=== PATIENT | male | born 1960 | race Caucasian/White ===

== ENCOUNTER 2017-05-10 18:28 | Emergency (ER) | payer MEDICAID ==
[2017-05-10] MEDS ORDERED: MAGNESIUM CITRATE 296 ML BOTTLE PO STA (19:25)
--- NOTE | 2017-05-10 19:30 | ED Physician Documentation ---
PD HPI ABD PAIN - Stated complaint Stated Complaint: ABD PX - Chief complaint Chief Complaint: Abd Pain - History obtained from History obtained from: Patient - History of Present Illness Timing - onset: Other (56-year-old gentleman who usually lives in [place] but he is out here visiting his son for the winter. He has chronic pain and brought his codeine with them and usually takes a bowel regimen but he left that back in [place]. He has not had a good bowel movement for several weeks now. He has not had any vomiting. He has mild stomach discomfort no rectal fullness or pain. He tried some [id number] laxatives here without relief. No fevers.) Review of Systems Constitutional: denies: Fever, Chills Throat: reports: Reviewed and negative Cardiac: reports: Reviewed and negative Respiratory: reports: Reviewed and negative PD PAST MEDICAL HISTORY - Past Medical History Past Medical History: Yes Neuro: CVA, Seizure disorder, Other Psych: Depression Other Past Medical History: brain aneurysm in 2014 - Past Surgical History Past Surgical History: Yes Neuro: Craniotomy - Present Medications Home Medications: Ambulatory Orders Medication Instructions Recorded Confirmed Acetaminophen with Codeine 1 tab PO PRN PRN 05/10/17 05/10/17 [Tylenol with Codeine #4 Tablet] Bisacodyl [Dulcolax] 10 mg PO DAILY #10 tablet 05/10/17 Escitalopram [Lexapro] 20 mg PO DAILY 05/10/17 05/10/17 Gabapentin 200 mg PO BID 05/10/17 05/10/17 Lactulose [Generlac] 10 gm PO QID PRN #150 ml 05/10/17 OLANZapine [Olanzapine] 20 mg PO DAILY 05/10/17 05/10/17 Oxcarbazepine [Oxtellar Xr] 1,200 mg PO DAILY PM 05/10/17 05/10/17 Topiramate 50 mg PO BID 05/10/17 05/10/17 Venlafaxine ER [Effexor ER] 150 mg PO DAILY 05/10/17 05/10/17 - Allergies Allergies/Adverse Reactions: Allergies Allergy/AdvReac Type Severity Reaction Status Date / Time cephalexin [From Keflex] Allergy Unknown Verified 05/10/17 18:37 erythromycin base Allergy Unknown Verified 05/10/17 18:37 - Social History Does the pt smoke?: Yes Smoking Status: Current every day smoker Does the pt drink ETOH?: No Does the pt have substance abuse?: No PD ED PE NORMAL - Vitals Vital signs reviewed: Yes - General General: Alert and oriented X 3, No acute distress - Abdomen Abdomen: Normal bowel sounds, Soft, Non tender - Neuro Neuro: Alert and oriented X 3, Normal speech Results - Vitals Vitals: Vital Signs - 24 hr 05/10/17 05/10/17 18:34 20:24 Temperature 36.1 C L 36.5 C Heart Rate 82 72 Respiratory 16 16 Rate Blood Pressure 95/67 107/68 O2 Saturation 100 97 Oxygen O2 Source Room air - Rads (name of study) Ab xray Radiology: EMP read contemporaneously (no SBO) Departure - Departure Disposition: Home, Self Care Clinical Impression: Constipation Qualifiers: Constipation type: slow transit constipation Qualified Code(s): K59.01 - Slow transit constipation Condition: Good Record reviewed to determine appropriate education?: Yes Instructions: ED Constipation Prescriptions: Bisacodyl [Dulcolax] 10 mg PO DAILY #10 tablet Lactulose [Generlac] 10 gm PO QID PRN #150 ml PRN Reason: Constipation Comments: Call your doctor to arrange a follow-up appointment, make the next available appointment. In the interim, return anytime if worse or if new symptoms develop.
[2017-05-10] MEDS ORDERED: MAGNESIUM CITRATE 296 ML BOTTLE ONE (19:34)
[2017-05-10] MEDS ORDERED: diphenhydrAMINE 25 MG CAPSULE PO STA (19:59)
[2017-05-10 20:29] VITALS: BP 107/68
--- NOTE | 2017-05-10 20:33 | XRAY Preliminary Report ---
Exam: XR ABDOMEN 2 VIEW IMPRESSION: Nonspecific bowel gas pattern with small amount of stool. [facility] SITE ID: [id number]
--- NOTE | 2017-05-10 20:36 | XRAY Report ---
EXAM: ABDOMEN RADIOGRAPHY EXAM DATE: 05/10/2017 08:04 PM. CLINICAL HISTORY: Abd pain. COMPARISON: None. TECHNIQUE: 2 views. FINDINGS: Lung Bases: Unremarkable. Bowel Gas Pattern: Scattered collections of large and small bowel gas throughout the abdomen with no focal dilation. Small amount of stool. Free Air: None. Other: None. IMPRESSION: Nonspecific bowel gas pattern with small amount of stool. [facility] Referring Provider Line: [phone] SITE ID: [id number]
[2017-05-10] MEDS ORDERED: LACTULOSE 10 GM /15 ML UDC PO STA (20:51)
[2017-05-10] MEDS ORDERED: BISACODYL 5 MG TABLET PO STA (20:51)
[2017-05-10] MEDS ORDERED: BISACODYL 5 MG TABLET PO ONE (21:10)
[2017-05-10] MEDS ORDERED: LACTULOSE 10 GM /15 ML UDC ONE (21:10)
== END 2017-05-10 21:13 | disposition home or self-care (01) ==
LOC: ED 18:28
DX: K59.01 Slow transit constipation (principal); Z86.73 Personal history of transient ischemic attack (TIA), and cerebral infarction without residual deficits; G40.909 Epilepsy, unspecified, not intractable, without status epilepticus; F17.200 Nicotine dependence, unspecified, uncomplicated
CPT/HCPCS: 74020; 99283; A9270

== ENCOUNTER 2017-05-24 14:28 | Outpatient (CLI) | payer MEDICAID ==
[2017-05-24 19:00] LABS: BASOPHILS # (AUTO) 0.1 10^3/uL (0.0-0.1); BASOPHILS % (AUTO) 0.6 %; EOSINOPHILS % (AUTO) 0.3 %; HCT - HEMATOCRIT 48.6 % (42.0-52.0); LYMPHOCYTES # (AUTO) 2.1 10^3/uL (1.5-3.5); LYMPHOCYTES % (AUTO) 21.3 %; MEAN CORPUSCULAR HEMOGLOBIN 32.1 pg (27.0-31.0); MEAN CORPUSCULAR HGB CONC 32.9 g/dL (32.0-36.0); MEAN CORPUSCULAR VOLUME 97.6 fL (80.0-94.0); MEAN PLATELET VOLUME 7.6 fL (7.4-11.4); MONOCYTES # (AUTO) 0.6 10^3/uL (0.0-1.0); MONOCYTES % (AUTO) 5.8 %; NUCLEATED RED BLOOD CELLS AUTO 0.1 /100WBC; RED BLOOD COUNT 4.97 10^6/uL (4.70-6.10); RED CELL DISTRIBUTION WIDTH 14.1 % (12.0-15.0); UNCORRECTED WHITE BLOOD COUNT 9.7 x10^3/uL; WHITE BLOOD COUNT 9.7 x10^3/uL (4.8-10.8)
[2017-05-24 19:15] LABS: ALBUMIN/GLOBULIN RATIO 1.5 (1.0-2.2); BILIRUBIN,TOTAL 0.6 mg/dL (0.2-1.0); BUN - BLOOD UREA NITROGEN 15 mg/dL (6-20); CALCIUM 9.5 mg/dL (8.5-10.3); CARBON DIOXIDE - CO2 22 mmol/L (21-32); CHLORIDE 103 mmol/L (101-111); CHOL/HDL RATIO 7.5 (<5.0); CHOLESTEROL 344 mg/dL; CREATININE 1.1 mg/dL (0.6-1.2); GFR - MDRD 69 (>89); GLUCOSE 93 mg/dL (70-100); HDL CHOLESTEROL 46 mg/dL; LDL/HDL RATIO 5.3 (<3.6); POTASSIUM 3.6 mmol/L (3.5-5.0); SODIUM 137 mmol/L (135-145); TOTAL PROTEIN 8.1 g/dL (6.7-8.2); TRIGLYCERIDES 261 mg/dL; VLDL CHOLESTEROL 52 mg/dL
== END 2017-05-24 14:29 | disposition home or self-care (01) ==
LOC: LAB.N 14:28
PROVIDERS: ATTEND Family Medicine
DX: I49.5 Sick sinus syndrome (principal); Z51.81 Encounter for therapeutic drug level monitoring; G40.909 Epilepsy, unspecified, not intractable, without status epilepticus
CPT/HCPCS: 36415; 80050; 80061

== ENCOUNTER 2017-06-07 06:46 | Outpatient (CLI) | payer MEDICAID | END 2017-06-07 06:47 | disposition critical access hospital (66) | LOC: EMS 06:46 | PROVIDERS: ATTEND Surgery | DX: R29.898 Other symptoms and signs involving the musculoskeletal system (principal); R51 Headache | CPT/HCPCS: A0425; A0429 ==

== ENCOUNTER 2017-06-07 07:06 | Emergency (ER) | payer MEDICAID ==
[2017-06-07] MEDS ORDERED: MORPHINE 2 MG/ML SYRINGE IVP STA ×4 (07:14→14:41)
[2017-06-07] MEDS ORDERED: PROMETHAZINE INJ 25 MG in SODIUM CHLORIDE 0.9% 50 ML IV STA (07:15)
--- NOTE | 2017-06-07 07:17 | ED Physician Documentation ---
History of Present Illness - Stated complaint Stated Complaint: CVA - Chief complaint Chief Complaint: Neuro - Additonal information Additional information: hx from pt EMS and primarily pt son 56 male recently moved to [place] from [place] Pmhx sig for prior brain aneurysms and ICH and s/p coils, clipping and crani also PPM X 18, trach, seizures, lipids DVT anxiety OA last normal last night 730PM awoke 4 Am today with a throbbing R frontal SERNA, L facial droop, L arm and leg weakness and confusion all of which are not baseline for him no vision or hearing or speech abn facial droop resolved, arm and leg weakness persist Review of Systems Constitutional: denies: Fever Cardiac: denies: Chest pain / pressure Respiratory: denies: Dyspnea, Cough GI: reports: Nausea. denies: Abdominal Pain Neurologic: reports: Focal weakness, Headache. denies: Numbness, Difficulty speaking, Head injury Endocrine: denies: Easy bruising / bleeding Immunocompromised: denies: Immunocompromised PD PAST MEDICAL HISTORY - Past Medical History Neuro: CVA, Seizure disorder, Other Psych: Depression - Past Surgical History Past Surgical History: Yes Neuro: Craniotomy - Present Medications Home Medications: Ambulatory Orders Medication Instructions Recorded Confirmed Acetaminophen with Codeine 1 tab PO PRN PRN 05/10/17 06/07/17 [Tylenol with Codeine #4 Tablet] Bisacodyl [Dulcolax] 10 mg PO DAILY #10 tablet 05/10/17 06/07/17 Escitalopram [Lexapro] 20 mg PO DAILY 05/10/17 06/07/17 Gabapentin 200 mg PO TID 05/10/17 06/07/17 Lactulose [Generlac] 10 gm PO QID PRN #150 ml 05/10/17 06/07/17 OLANZapine [Olanzapine] 20 mg PO DAILY 05/10/17 06/07/17 Oxcarbazepine [Oxtellar Xr] 1,200 mg PO DAILY PM 05/10/17 06/07/17 Topiramate 50 mg PO BID 05/10/17 06/07/17 Venlafaxine ER [Effexor ER] 150 mg PO DAILY 05/10/17 06/07/17 - Allergies Allergies/Adverse Reactions: Allergies Allergy/AdvReac Type Severity Reaction Status Date / Time cephalexin [From Keflex] Allergy Unknown Verified 05/10/17 18:37 erythromycin base Allergy Unknown Verified 05/10/17 18:37 ketorolac [From Toradol] Allergy Itching Verified 06/07/17 07:11 TPA AdvReac Unknown Unknown Uncoded 06/07/17 07:18 - Social History Does the pt smoke?: Yes Smoking Status: Current every day smoker Does the pt drink ETOH?: No Does the pt have substance abuse?: No PD ED PE NORMAL - Vitals Vital signs reviewed: Yes - General General: Alert and oriented X 3 - HEENT HEENT: PERRL, Other (prior R crani) - Neck Neck: Other (trach scar) - Cardiac Cardiac: RRR, Other (numerous PPM scars) - Respiratory Respiratory: No respiratory distress, Clear bilaterally - Abdomen Abdomen: Soft, Non tender - Derm Derm: Normal color - Neuro Neuro: Alert and oriented X 3, local superintendent 2-12 intact, No sensory deficit, Normal speech. No: No motor deficit (L arm and leg drift) Eye Opening: Spontaneous Motor: Obeys Commands Verbal: Oriented GCS Score: 15 Results - Vitals Vitals: Vital Signs - 24 hr 06/07/17 06/07/17 06/07/17 07:07 07:19 08:16 Temperature 36.1 C L 36.8 C Heart Rate 83 56 L Respiratory 11 L 15 Rate Blood Pressure 116/63 114/80 O2 Saturation 99 97 06/07/17 06/07/17 06/07/17 09:08 10:02 11:02 Temperature Heart Rate 53 L 50 L 58 L Respiratory 14 12 16 Rate Blood Pressure 117/82 H 113/76 109/78 O2 Saturation 97 97 97 06/07/17 06/07/17 06/07/17 12:15 13:52 15:58 Temperature 36.8 C Heart Rate 51 L 56 L 56 L Respiratory 16 15 18 Rate Blood Pressure 111/70 107/70 96/60 O2 Saturation 97 96 95 Oxygen O2 Source Room air - EKG (time done) 0712 Rate: Rate (enter#) (89) Rhythm: Other (atrial paced) Ischemia: Q waves (V1 V2) - Labs Labs: Laboratory Tests 06/07/17 06/07/17 07:40 07:40 WBC 9.6 RBC 4.63 L Hgb 15.1 Hct 43.4 MCV 93.6 MCH 32.7 H MCHC 34.9 RDW 13.6 Plt Count 237 MPV 7.1 L Neut # 6.7 H Lymph # 1.9 Phillips # 0.9 Eos # 0.0 Baso # 0.1 Absolute Nucleated RBC 0.00 Nucleated RBC % 0.0 Sodium 136 Potassium 3.9 Chloride 109 Carbon Dioxide 20 L Anion Gap 7.0 BUN 12 Creatinine 0.8 Estimated GFR (MDRD) 100 Glucose 95 Calcium 9.2 - Rads (name of study) CTH Radiology: See rad report (no acute ICH, chronic changes) PD MEDICAL DECISION MAKING - ED course ED course: due to prior ICH pt can never have TPA, son in ambulance with pt immediately alerted staff - will add as an allergy for pt so that if he ever arrives and is unable to to explain EMR will alert staff reviewed old records son brought from [place] - seems in spring 2013 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 . . not captured" CTH today no acute, paced rhythm, nl labs 56 male with hx ICH and surgery with new L sided neuro deficits which are improved but not resolved who is clearly not a TPA candidate - could be ischemic stroke, enlarging aneurysm, todds paralysis etc- will call [facility] stroke team to transfer for further work up and eval spoke to neuro Dr Mckinney at [facility] who accepts pt in transfer - asks that pt take his oxtellar XR ( pt states it is QPM and he took it last night so OK there ) and asa 324 and try to get info re PPM so know if pt can get MRI - pts PPM card is in [facility] at home but family will take a pic of it and text to son who is in the ER with pt - card in wallet was from 2001 and that was not most recent PPM, most recent per pt was by Dr Solitario at [facility] in [facility] - trying to get records Long wait for a bed at [facility] pt then transfereed when available Departure - Departure Disposition: 02 Transfer Acute Care Hosp Clinical Impression: Left-sided weakness Headache Qualifiers: Headache type: unspecified Headache chronicity pattern: acute headache Intractability: not intractable Qualified Code(s): R51 - Headache Condition: Fair Discharge Date/Time: 06/07/17 16:30 NIHSS - Time Time: 07:10 - Level of Consciousness Level of consciousness: (0) Alert, Keenly responsive LOC Questions: (0) Answers both Q's correct LOC Commands: (0) Performs both correctly - Gaze Best Gaze: (0) Normal - Visual Visual: (0) No loss - Facial Palsy Facial Palsy: (0) Normal, symmetrical movement - Motor Arms (both separate) Motor Arm (right): (0) No drift Motor Arm (left): (2) Some effort against gravity - Motor Legs (both separate) Motor Leg (right): (0) No drift Motor Leg (left): (2) Some effort against gravity - Limb Ataxia Limb Ataxia: (0) Absent - Sensory Sensory: (0) Normal - Best Language Best Language: (0) No aphasia - Dysarthria Dysarthria: (0) Normal - Extinction and Inattention (formally neg Extinction and inattention: (0) No abnormality - Total Score/Results Total Score/Result: 4
--- NOTE | 2017-06-07 07:37 | CT Preliminary Report ---
Exam: CT HEAD W/O STROKE PROTOCOL IMPRESSION: No evidence of an acute intracranial process. Chronic changes are present. Critical test called to Dr. Armendariz 06/07/2017 7:35 AM [facility] SITE ID: [id number]
--- NOTE | 2017-06-07 07:40 | CT Report ---
EXAM: CT HEAD EXAM DATE: 06/07/2017 07:25 AM. CLINICAL HISTORY: L sided weakness, SERNA, prior aneurysm ICH crani. COMPARISON: None. TECHNIQUE: Multiaxial CT images were obtained from the foramen magnum to the vertex. Reformats: Coron al. IV contrast: None. In accordance with CT protocol optimization, one or more of the following dose reduction techniques w ere utilized for this exam: automated exposure control, adjustment of mA and/or KV based on patient s ize, or use of iterative reconstructive technique. FINDINGS: Parenchyma: Status post aneurysm surgery with clip in the region of the right anterior clinoid. Artif act obscures detail. Minor age-related central and cortical tissue loss with evidence of old right fr ontal ventriculostomy tract. Encephalomalacia in a portion of the distal right anterior cerebral brinda ry territory/watershed distribution. No acute hemorrhage, mass, midline shift, or significant extra-a xial collection. Extraaxial Spaces: No acute subdural or epidural collections identified. Ventricles: Normal in size and position. Sinuses and Orbits: Imaged paranasal sinuses, orbits, and mastoids show no significant abnormality. Bones: Status post right frontal craniotomy. Bifrontal carlos holes. Other: None. IMPRESSION: No evidence of an acute intracranial process. Chronic changes are present. Critical test called to Dr. Armendariz 06/07/2017 7:35 AM [facility] Referring Provider Line: [phone] SITE ID: [id number]
[2017-06-07 07:54] LABS: BASOPHILS # (AUTO) 0.1 10^3/uL (0.0-0.1); EOSINOPHILS % (AUTO) 0.2 %; HCT - HEMATOCRIT 43.4 % (42.0-52.0); HGB - HEMOGLOBIN 15.1 g/dL (14.0-18.0); LYMPHOCYTES # (AUTO) 1.9 10^3/uL (1.5-3.5); MEAN CORPUSCULAR HEMOGLOBIN 32.7 pg (27.0-31.0); MEAN CORPUSCULAR HGB CONC 34.9 g/dL (32.0-36.0); MEAN CORPUSCULAR VOLUME 93.6 fL (80.0-94.0); MEAN PLATELET VOLUME 7.1 fL (7.4-11.4); MONOCYTES # (AUTO) 0.9 10^3/uL (0.0-1.0); MONOCYTES % (AUTO) 8.9 %; NEUTROPHILS # (AUTO) 6.7 10^3/uL (1.5-6.6); NEUTROPHILS % (AUTO) 69.9 %; RED BLOOD COUNT 4.63 10^6/uL (4.70-6.10); RED CELL DISTRIBUTION WIDTH 13.6 % (12.0-15.0); UNCORRECTED WHITE BLOOD COUNT 9.6 x10^3/uL; WHITE BLOOD COUNT 9.6 x10^3/uL (4.8-10.8)
[2017-06-07 07:57] LABS: CALCIUM 9.2 mg/dL (8.5-10.3); CREATININE 0.8 mg/dL (0.6-1.2); POTASSIUM 3.9 mmol/L (3.5-5.0)
[2017-06-07] MEDS ORDERED: ASPIRIN CHEW 81 MG TABLET PO STA (08:53)
[2017-06-07] MEDS ORDERED: ASPIRIN CHEW 81 MG TABLET ONE (08:55)
[2017-06-07] MEDS ORDERED: ACETAMINOPHEN 1,000 MG/100 ML 100 ML IV STA (12:50)
[2017-06-07] MEDS ORDERED: PROMETHAZINE INJ 12.5 MG in SODIUM CHLORIDE 0.9% 50 ML IV STA (14:41)
[2017-06-07 15:59] VITALS: BP 96/60
== END 2017-06-07 16:30 | disposition short-term general hospital (02) ==
LOC: EDUNIT# → ED 07:06
DX: I69.354 Hemiplegia and hemiparesis following cerebral infarction affecting left non-dominant side (principal); R51 Headache; E78.5 Hyperlipidemia, unspecified; Z86.718 Personal history of other venous thrombosis and embolism; F41.9 Anxiety disorder, unspecified; M19.90 Unspecified osteoarthritis, unspecified site; G40.909 Epilepsy, unspecified, not intractable, without status epilepticus; F17.200 Nicotine dependence, unspecified, uncomplicated
CPT/HCPCS: 36415; 70450; 80048; 85025; 93005; 96365; 96366; 96367; 96375; 96376; 99284; 99285; A9270; J0131; J2270; J7040

== ENCOUNTER → 2017-06-07 | Outpatient (CLI) | payer MEDICAID | END | disposition short-term general hospital (02) | LOC: EMS 16:22 | PROVIDERS: ATTEND Surgery | DX: R53.1 Weakness (principal); R51 Headache | CPT/HCPCS: A0425; A0426 ==

== ENCOUNTER 2017-06-18 04:50 | Outpatient (CLI) | payer MEDICAID | END 2017-06-18 04:51 | disposition critical access hospital (66) | LOC: EMS 04:50 | PROVIDERS: ATTEND Surgery | DX: R51 Headache (principal); R56.9 Unspecified convulsions ==

== ENCOUNTER 2017-06-18 05:06 | Emergency (ER) | payer MEDICAID ==
[2017-06-18] MEDS ORDERED: ACETAMINOPHEN 500 MG TABLET PO STA (05:58)
[2017-06-18 06:04] LABS: BASOPHILS # (AUTO) 0.1 10^3/uL (0.0-0.1); BASOPHILS % (AUTO) 1.1 %; EOSINOPHILS % (AUTO) 0.4 %; LYMPHOCYTES # (AUTO) 2.2 10^3/uL (1.5-3.5); LYMPHOCYTES % (AUTO) 31.8 %; MEAN CORPUSCULAR HEMOGLOBIN 31.7 pg (27.0-31.0); MEAN CORPUSCULAR VOLUME 96.3 fL (80.0-94.0); MEAN PLATELET VOLUME 7.2 fL (7.4-11.4); MONOCYTES # (AUTO) 0.6 10^3/uL (0.0-1.0); MONOCYTES % (AUTO) 9.4 %; NEUTROPHILS # (AUTO) 3.9 10^3/uL (1.5-6.6); NEUTROPHILS % (AUTO) 57.3 %; PLT - PLATELET COUNT 304 10^3/uL (130-450); RED CELL DISTRIBUTION WIDTH 13.6 % (12.0-15.0); WHITE BLOOD COUNT 6.9 x10^3/uL (4.8-10.8)
[2017-06-18 06:15] LABS: ALBUMIN 3.9 g/dL (3.2-5.5); ALBUMIN/GLOBULIN RATIO 1.4 (1.0-2.2); BILIRUBIN,TOTAL 0.3 mg/dL (0.2-1.0); CALCIUM 9.2 mg/dL (8.5-10.3); TOTAL PROTEIN 6.7 g/dL (6.7-8.2)
--- NOTE | 2017-06-18 06:41 | CT Report ---
EXAM: CT HEAD EXAM DATE: 06/18/2017 06:27 AM. CLINICAL HISTORY: Seizure COMPARISON: 06/07/2017. TECHNIQUE: Multiaxial CT images were obtained from the foramen magnum to the vertex. Reformats: Coron al. IV contrast: None. In accordance with CT protocol optimization, one or more of the following dose reduction techniques w ere utilized for this exam: automated exposure control, adjustment of mA and/or KV based on patient s ize, or use of iterative reconstructive technique. FINDINGS: Again demonstrated are changes of right pterional craniotomy and right ICA aneurysm surgery, endovasc ular coil also seen in this region. Linear hypodensity extends from a right frontal carlos hole to the right frontal horn, likely the seque la of prior EVD placement and removal. This is unchanged. Small, old left cerebellum infarct, also stable. Chronic appearing area of infarct is seen medial aspect of the right frontal and parietal lobes, also unchanged. No space-occupying lesion, hemorrhage, extracerebral fluid collection, hydrocephalus or evidence of i nterval infarct. Skull base, paranasal sinuses and mastoids appear unremarkable. Calvarium is unremarkable aside from craniotomy. IMPRESSION: Old appearing infarcts, unchanged. Stable postoperative changes of right ICA aneurysm surgery. No acute intracranial process identified. Stable finding since 06/07/2017. [facility] Referring Provider Line: [phone] SITE ID: [id number]
[2017-06-18] MEDS ORDERED: levETIRAcetam INJ 2,000 MG in SODIUM CHLORIDE 0.9% 100ML 100 ML IV STA (06:51)
--- NOTE | 2017-06-18 06:51 | ED Physician Documentation ---
PD HPI SEIZURE - Stated complaint Stated Complaint: SEIZURES X4 - Chief complaint Chief Complaint: Neuro - History obtained from History obtained from: Patient, Family, EMS - History of Present Illness Timing - onset: Today Witnessed: Witnessed Number of seizures: Multiple, Lasted - seconds Description of seizure activity: Generalized, Tonic clonic History of seizures: Known seizure disorder Similar symptoms before: Work up / diagnostics, Treatment Recently seen: Admitted - Additional information Additional information: patient is a 56 year old male with a known seizure disorder who was brought in by ems for recurrent seizures. According to patient, family and ems patient was recently admitted to [facility] and was discharged 3 days ago. The son states that the patient had been ok but tonight he was woken up when he heard banging from his father's room. Son called ems. son states that he had one earlier in the day as well. When ems arrived patient had another witnessed seizure that was tonic clonic that resolved on its own. Patient had a third one that seemed more focal in nature. Patient only complained of headache upon initial evaluation in the emergency department. Review of Systems Constitutional: denies: Fever, Chills Eyes: denies: Decreased vision, Photophobia Ears: denies: Ear pain, Drainage/discharge Nose: denies: Rhinorrhea / runny nose, Congestion, Sinus pressure / pain Throat: denies: Dental pain / toothache, Oral lesions / sores, Sore throat Cardiac: denies: Chest pain / pressure, Palpitations, Calf pain Respiratory: denies: Cough, Wheezing GI: denies: Nausea, Vomiting, Constipation, Diarrhea : reports: Reviewed and negative Skin: denies: Lesions, Abrasion (s), Laceration (s) Musculoskeletal: denies: Back pain Neurologic: reports: Seizure, Headache. denies: Head injury Immunocompromised: denies: Immunocompromised PD PAST MEDICAL HISTORY - Past Medical History Cardiovascular: Other Neuro: CVA, Seizure disorder, Other Psych: Depression - Past Surgical History Past Surgical History: Yes Cardiovascular: Pacemaker Neuro: Craniotomy - Present Medications Home Medications: Ambulatory Orders Medication Instructions Recorded Confirmed Escitalopram [Lexapro] 20 mg PO DAILY 05/10/17 06/18/17 Gabapentin 300 mg PO TID 05/10/17 06/18/17 OLANZapine [Olanzapine] 20 mg PO QPM 05/10/17 06/18/17 Topiramate 100 mg PO BID 05/10/17 06/18/17 Aspirin [Aspirin EC] 1 tab PO DAILY 06/18/17 06/18/17 Atorvastatin Calcium 1 tab PO DAILY 06/18/17 06/18/17 Levetiracetam [Keppra] 2,000 mg PO BID 30 Days #120 tablet 06/18/17 06/18/17 oxyCODONE [Roxicodone] 1 - 2 tab PO Q6HR PRN 06/18/17 06/18/17 - Allergies Allergies/Adverse Reactions: Allergies Allergy/AdvReac Type Severity Reaction Status Date / Time cephalexin [From Keflex] Allergy Unknown Verified 06/18/17 23:52 erythromycin base Allergy Unknown Verified 06/18/17 23:52 ketorolac [From Toradol] Allergy Itching Verified 06/18/17 23:52 TPA AdvReac Unknown Unknown Uncoded 06/18/17 23:52 - Social History Does the pt smoke?: Yes Smoking Status: Current every day smoker Does the pt drink ETOH?: No Does the pt have substance abuse?: No - Immunizations Immunizations are current?: No Immunizations: TDAP >10years/unknown - POLST Patient has POLST: No PD ED PE NORMAL - Vitals Vital signs reviewed: Yes - General General: Alert and oriented X 3 - HEENT HEENT: Atraumatic, PERRL, Ears normal, Moist mucous membranes, Pharynx benign - Neck Neck: Supple, no meningeal sign, No JVD - Cardiac Cardiac: RRR, No murmur - Respiratory Respiratory: No respiratory distress, Clear bilaterally - Abdomen Abdomen: Soft, Non tender, Non distended - Derm Derm: Normal color, Warm and dry, No rash - Extremities Extremities: No deformity, Normal ROM s pain, No calf tenderness / cord - Neuro Neuro: Alert and oriented X 3, oil and gas drafter 2-12 intact, No motor deficit, No sensory deficit, Normal speech Eye Opening: Spontaneous Motor: Obeys Commands Verbal: Oriented GCS Score: 15 Results - Vitals Vitals: Vital Signs - 24 hr 06/18/17 06/18/17 06/18/17 05:08 05:20 05:55 Temperature 36.0 C L Heart Rate 73 75 65 Respiratory 17 19 12 Rate Blood Pressure 110/76 110/76 109/74 O2 Saturation 100 97 99 06/18/17 06/18/17 06/18/17 07:04 08:16 10:38 Temperature 36.2 C L Heart Rate 92 58 L 65 Respiratory 17 12 15 Rate Blood Pressure 108/76 110/87 H 112/85 H O2 Saturation 98 100 100 Oxygen O2 Source Room air - Labs Labs: Laboratory Tests 06/18/17 06/18/17 05:55 05:55 WBC 6.9 RBC 4.40 L Hgb 14.0 Hct 42.4 MCV 96.3 H MCH 31.7 H MCHC 33.0 RDW 13.6 Plt Count 304 MPV 7.2 L Neut # 3.9 Lymph # 2.2 Stokes # 0.6 Eos # 0.0 Baso # 0.1 Absolute Nucleated RBC 0.00 Nucleated RBC % 0.0 Sodium 142 Potassium 3.4 L Chloride 111 Carbon Dioxide 21 Anion Gap 10.0 BUN 12 Creatinine 1.0 Estimated GFR (MDRD) 78 L Glucose 95 Calcium 9.2 Total Bilirubin 0.3 AST 25 ALT 24 Alkaline Phosphatase 70 Total Protein 6.7 Albumin 3.9 Globulin 2.8 Albumin/Globulin Ratio 1.4 Lipase 39 - Rads (name of study) ct head Radiology: Final report received (no acute abnormalities) PD MEDICAL DECISION MAKING - ED course Complexity details: reviewed old records, reviewed results, re-evaluated patient , considered differential, d/w patient, d/w family, d/w information technology consultant ED course: Patient was seen and examined at bedside. labs were drawn and imaging was ordered. Patient was slightly post ictal but awake and alert. Patient was treated with morphine for his headache. Patient's diagnostics were within normal limits. [facility] was contacted and the case was discussed with Dr. hernadez neurologist vocational technical education teacher. He stated that the patient could be loaded with keppra 2gm and increase the dose of the daily keppra to 1500 bid. He stated that if the patient responded well and had no issues over a 4 hour observation he could go home and follow up outpatient. Family was comfortable with the plan. patient and family stated that he has been under a lot of stress and going through a divorce. Departure - Departure Disposition: 01 Home, Self Care Clinical Impression: Seizure Condition: Good Instructions: ED Seizure Recurrent Follow-Up: primary,care provider [Other] - Within 3 Days Prescriptions: Levetiracetam [Keppra] 2,000 mg PO BID 30 Days #120 tablet Comments: Your breakthrough seizures are likely secondary to all of your stress. it is important that you try to keep your stress levels low to help reduce the risk for recurrent seizures. Your seizure medication has been increased to keppra 200 mg twice a day - next dose is tonight You should continue with your other medications as prescribed. It is important that you call your neurologist on Monday to schedule a follow up appointment - if you do not have an outpatient neurologist call Dustin Wills at to schedule. You will need to stay with a responsible adult who can watch you at all times. No driving etc. If you have any further seizures yoiu need to come back to the ER and you will need to be transferred back to [facility] for admission Discharge Date/Time: 06/18/17 10:47
[2017-06-18] MEDS ORDERED: MORPHINE 10 MG/ML VIAL IVP STA ×2 (06:52→08:02)
[2017-06-18] MEDS: levETIRAcetam INJ 1,000 MG in SODIUM CHLORIDE 0.9% 100ML 100 ML IV SCH ×2 (07:34→08:05)
[2017-06-18] MEDS ORDERED: oxyCODONE 5 MG TABLET PO STA (10:01)
--- NOTE | 2017-06-18 10:09 | ED Physician Documentation ---
History of Present Illness - Stated complaint Stated Complaint: SEIZURES X4 - Chief complaint Chief Complaint: Neuro PD PAST MEDICAL HISTORY - Past Medical History Cardiovascular: Other Neuro: CVA, Seizure disorder, Other Psych: Depression - Past Surgical History Past Surgical History: Yes Cardiovascular: Pacemaker Neuro: Craniotomy - Present Medications Home Medications: Ambulatory Orders Medication Instructions Recorded Confirmed Escitalopram [Lexapro] 20 mg PO DAILY 05/10/17 06/18/17 Gabapentin 300 mg PO TID 05/10/17 06/18/17 OLANZapine [Olanzapine] 20 mg PO QPM 05/10/17 06/18/17 Topiramate 100 mg PO BID 05/10/17 06/18/17 Aspirin [Aspirin EC] 1 tab PO DAILY 06/18/17 06/18/17 Atorvastatin Calcium 1 tab PO DAILY 06/18/17 06/18/17 Levetiracetam [Keppra] 2,000 mg PO BID 30 Days #120 tablet 06/18/17 oxyCODONE [Roxicodone] 1 - 2 tab PO Q6HR PRN 06/18/17 06/18/17 - Allergies Allergies/Adverse Reactions: Allergies Allergy/AdvReac Type Severity Reaction Status Date / Time cephalexin [From Keflex] Allergy Unknown Verified 05/10/17 18:37 erythromycin base Allergy Unknown Verified 05/10/17 18:37 ketorolac [From Toradol] Allergy Itching Verified 06/07/17 07:11 TPA AdvReac Unknown Unknown Uncoded 06/07/17 07:18 - Social History Does the pt smoke?: Yes Smoking Status: Current every day smoker Does the pt drink ETOH?: No Does the pt have substance abuse?: No - Immunizations Immunizations are current?: No Immunizations: TDAP >10years/unknown - POLST Patient has POLST: No Results - Vitals Vitals: Vital Signs - 24 hr 06/18/17 06/18/17 06/18/17 05:08 05:20 05:55 Temperature 36.0 C L Heart Rate 73 75 65 Respiratory 17 19 12 Rate Blood Pressure 110/76 110/76 109/74 O2 Saturation 100 97 99 06/18/17 06/18/17 06/18/17 07:04 08:16 10:38 Temperature 36.2 C L Heart Rate 92 58 L 65 Respiratory 17 12 15 Rate Blood Pressure 108/76 110/87 H 112/85 H O2 Saturation 98 100 100 Oxygen O2 Source Room air - Labs Labs: Laboratory Tests 06/18/17 06/18/17 05:55 05:55 WBC 6.9 RBC 4.40 L Hgb 14.0 Hct 42.4 MCV 96.3 H MCH 31.7 H MCHC 33.0 RDW 13.6 Plt Count 304 MPV 7.2 L Neut # 3.9 Lymph # 2.2 [place] # 0.6 Eos # 0.0 Baso # 0.1 Absolute Nucleated RBC 0.00 Nucleated RBC % 0.0 Sodium 142 Potassium 3.4 L Chloride 111 Carbon Dioxide 21 Anion Gap 10.0 BUN 12 Creatinine 1.0 Estimated GFR (MDRD) 78 L Glucose 95 Calcium 9.2 Total Bilirubin 0.3 AST 25 ALT 24 Alkaline Phosphatase 70 Total Protein 6.7 Albumin 3.9 Globulin 2.8 Albumin/Globulin Ratio 1.4 Lipase 39 PD MEDICAL DECISION MAKING - ED course ED course: assumed care 8 AM 56 male hx brain aneurysm, ICH s/p clip/coil and crani, hx seizures also PPM X 18 and trach and HLD DVT anxiety recently seen by me for stroke like sx and SERNA tx to [facility] where he had an extensive wup dc home last night had 4 seziures no injury has a bad SERNA but states that is typical for him after seizures night EMP spoke to [facility] and was advised to load 2 g keppra then obs 2 more hr and then speak with neuro again and if all well and dc on increased outpt oral dose, went to see pt he is awake alert pleasant cooperative only complaint is persistent SERNA which is not new for him d/w Dr Hua [facility] neuro who advises pt had a CT angio showing no new aneurysm and a neg LP during his recent inpt stay - rec keppra 2g BID start tonight stay with another adult if more seizures return and will need to be admitted - continue everything else as before fup neuro as an outpt, rec Dustin Wills to schedule Departure - Departure Disposition: 01 Home, Self Care Clinical Impression: Seizure Condition: Good Instructions: ED Seizure Recurrent Follow-Up: primary,care provider [Other] - Within 3 Days Prescriptions: Levetiracetam [Keppra] 2,000 mg PO BID 30 Days #120 tablet Comments: Your breakthrough seizures are likely secondary to all of your stress. it is important that you try to keep your stress levels low to help reduce the risk for recurrent seizures. Your seizure medication has been increased to keppra 200 mg twice a day - next dose is tonight You should continue with your other medications as prescribed. It is important that you call your neurologist on Monday to schedule a follow up appointment - if you do not have an outpatient neurologist call uDstin Wills at to schedule. You will need to stay with a responsible adult who can watch you at all times. No driving etc. If you have any further seizures yoiu need to come back to the ER and you will need to be transferred back to [facility] for admission Discharge Date/Time: 06/18/17 10:47
[2017-06-18 10:39] VITALS: BP 112/85
== END 2017-06-18 10:47 | disposition home or self-care (01) ==
LOC: EDUNIT# → ED 05:06
DX: G40.909 Epilepsy, unspecified, not intractable, without status epilepticus (principal); F17.200 Nicotine dependence, unspecified, uncomplicated; Z86.73 Personal history of transient ischemic attack (TIA), and cerebral infarction without residual deficits; Z95.0 Presence of cardiac pacemaker; Z79.82 Long term (current) use of aspirin; Z98.890 Other specified postprocedural states
CPT/HCPCS: 36415; 70450; 80053; 83690; 85025; 99285

== ENCOUNTER 2017-06-18 23:25 | Outpatient (CLI) | payer MEDICAID | END 2017-06-18 23:26 | disposition critical access hospital (66) | LOC: EMS 23:25 | PROVIDERS: ATTEND Surgery | DX: R56.9 Unspecified convulsions (principal) | CPT/HCPCS: A0425; A0427 ==

== ENCOUNTER 2017-06-18 23:43 | Emergency (ER) | payer MEDICAID ==
[2017-06-19 00:15] LABS: BASOPHILS # (AUTO) 0.1 10^3/uL (0.0-0.1); EOSINOPHILS % (AUTO) 0.3 %; HGB - HEMOGLOBIN 12.6 g/dL (14.0-18.0); LYMPHOCYTES # (AUTO) 2.7 10^3/uL (1.5-3.5); LYMPHOCYTES % (AUTO) 36.6 %; MEAN CORPUSCULAR HEMOGLOBIN 32.9 pg (27.0-31.0); MEAN CORPUSCULAR HGB CONC 34.9 g/dL (32.0-36.0); MEAN CORPUSCULAR VOLUME 94.1 fL (80.0-94.0); MEAN PLATELET VOLUME 7.3 fL (7.4-11.4); MONOCYTES # (AUTO) 0.6 10^3/uL (0.0-1.0); MONOCYTES % (AUTO) 7.6 %; NEUTROPHILS # (AUTO) 3.9 10^3/uL (1.5-6.6); NEUTROPHILS % (AUTO) 54.5 %; PLT - PLATELET COUNT 272 10^3/uL (130-450); RED BLOOD COUNT 3.85 10^6/uL (4.70-6.10); RED CELL DISTRIBUTION WIDTH 13.6 % (12.0-15.0); WHITE BLOOD COUNT 7.2 x10^3/uL (4.8-10.8)
[2017-06-19] MEDS ORDERED: SODIUM CHLORIDE 0.9% 1,000 ML IV ONE (00:15)
[2017-06-19] MEDS ORDERED: fentaNYL 100 MCG/2 ML VIAL IVP STA ×2 (00:15→01:32)
[2017-06-19 00:25] LABS: ALBUMIN 3.6 g/dL (3.2-5.5); ALBUMIN/GLOBULIN RATIO 1.5 (1.0-2.2); BILIRUBIN,TOTAL 0.2 mg/dL (0.2-1.0); CALCIUM 8.9 mg/dL (8.5-10.3); CREATININE 0.9 mg/dL (0.6-1.2)
[2017-06-19] MEDS ORDERED: TOPIRAMATE 25 MG TABLET PO STA (00:30)
--- NOTE | 2017-06-19 00:30 | ED Physician Documentation ---
PD HPI SEIZURE - Stated complaint Stated Complaint: MULTIPLE SEIZURES - Chief complaint Chief Complaint: Neuro - History obtained from History obtained from: Patient, Family, EMS - History of Present Illness Timing - onset: Today Number of seizures: Multiple, Lasted - seconds (30) Description of seizure activity: Generalized, Tonic clonic Injury during seizure: None Associated symptoms: Headache History of seizures: Known seizure disorder Contributing factors: Changed meds Treatment CASH MANAGEMENT COORDINATOR: Valium Similar symptoms before: Work up / diagnostics, Treatment Recently seen: Emergency Dept - Additional information Additional information: Patient is a 56 year old male with a history of prior aneurysm and recurrent seizures who is presenting to the emergency department for recurrent seizures. Patient was seen in the emergency department yesterday, and with the guidance of neurology was loaded with 2gm of keppra and increased his daily dose to 1500mg. Patient states that he took his meds today, but he had another seizure witnessed by the son. Son called ems. EMS witness three more seizures while under their care. All of the seizures lasted about 30-60 seconds and were tonic clonic in nature. Upon initial evaluation in the emergency department patient was awake and alert and complained only of headache. Review of Systems Constitutional: denies: Fever, Chills Eyes: denies: Decreased vision, Photophobia Ears: denies: Ear pain, Drainage/discharge Nose: denies: Congestion Throat: denies: Dental pain / toothache, Oral lesions / sores Cardiac: denies: Palpitations Respiratory: denies: Dyspnea, Cough GI: denies: Nausea, Vomiting : reports: Reviewed and negative Skin: denies: Rash, Abrasion (s), Laceration (s) Musculoskeletal: denies: Neck pain, Back pain, Extremity pain Neurologic: reports: Seizure, Headache. denies: Head injury Immunocompromised: denies: Immunocompromised PD PAST MEDICAL HISTORY - Past Medical History Cardiovascular: Other Neuro: CVA, TIA, Seizure disorder, Other Psych: Depression - Past Surgical History Past Surgical History: Yes Cardiovascular: Pacemaker Neuro: Craniotomy - Present Medications Home Medications: Ambulatory Orders Medication Instructions Recorded Confirmed Escitalopram [Lexapro] 20 mg PO DAILY 05/10/17 06/18/17 Gabapentin 300 mg PO TID 05/10/17 06/18/17 OLANZapine [Olanzapine] 20 mg PO QPM 05/10/17 06/18/17 Topiramate 100 mg PO BID 05/10/17 06/18/17 Aspirin [Aspirin EC] 1 tab PO DAILY 06/18/17 06/18/17 Atorvastatin Calcium 1 tab PO DAILY 06/18/17 06/18/17 Levetiracetam [Keppra] 2,000 mg PO BID 30 Days #120 tablet 06/18/17 06/18/17 oxyCODONE [Roxicodone] 1 - 2 tab PO Q6HR PRN 06/18/17 06/18/17 - Allergies Allergies/Adverse Reactions: Allergies Allergy/AdvReac Type Severity Reaction Status Date / Time cephalexin [From Keflex] Allergy Unknown Verified 06/18/17 23:52 erythromycin base Allergy Unknown Verified 06/18/17 23:52 ketorolac [From Toradol] Allergy Itching Verified 06/18/17 23:52 TPA AdvReac Unknown Unknown Uncoded 06/18/17 23:52 - Social History Does the pt smoke?: Yes Smoking Status: Current every day smoker Does the pt drink ETOH?: No Does the pt have substance abuse?: No - Immunizations Immunizations are current?: No Immunizations: TDAP >10years/unknown - POLST Patient has POLST: No PD ED PE NORMAL - Vitals Vital signs reviewed: Yes - General General: Alert and oriented X 3, No acute distress - HEENT HEENT: Atraumatic, PERRL, Moist mucous membranes - Neck Neck: Supple, no meningeal sign, No JVD - Cardiac Cardiac: RRR, No murmur - Respiratory Respiratory: No respiratory distress, Clear bilaterally - Abdomen Abdomen: Soft, Non tender, Non distended - Derm Derm: Normal color - Extremities Extremities: No deformity, Normal ROM s pain - Neuro Neuro: Alert and oriented X 3, No motor deficit, No sensory deficit, Normal speech Eye Opening: Spontaneous Motor: Obeys Commands Verbal: Oriented GCS Score: 15 - Psych Psych: Normal mood PD ED PE EXPANDED - General General: Alert, In Pain Results - Vitals Vitals: Vital Signs - 24 hr 06/18/17 06/19/17 06/19/17 23:48 00:00 00:16 Temperature 36.6 C Heart Rate 73 69 68 Respiratory 11 L 18 18 Rate Blood Pressure 99/68 83/59 L 92/69 O2 Saturation 96 97 97 06/19/17 00:54 Temperature Heart Rate 76 Respiratory 20 Rate Blood Pressure 94/68 O2 Saturation 100 Oxygen O2 Source Room air - Labs Labs: Laboratory Tests 06/18/17 06/18/17 00:05 00:05 WBC 7.2 RBC 3.85 L Hgb 12.6 L Hct 36.2 L MCV 94.1 H MCH 32.9 H MCHC 34.9 RDW 13.6 Plt Count 272 MPV 7.3 L Neut # 3.9 Lymph # 2.7 [place] # 0.6 Eos # 0.0 Baso # 0.1 Absolute Nucleated RBC 0.00 Nucleated RBC % 0.0 Sodium 142 Potassium 3.2 L Chloride 111 Carbon Dioxide 23 Anion Gap 8.0 BUN 11 Creatinine 0.9 Estimated GFR (MDRD) 88 L Glucose 100 Calcium 8.9 Total Bilirubin 0.2 AST 17 ALT 20 Alkaline Phosphatase 61 Total Protein 6.0 L Albumin 3.6 Globulin 2.4 Albumin/Globulin Ratio 1.5 Lipase 33 PD MEDICAL DECISION MAKING - ED course Complexity details: reviewed old records, reviewed results, re-evaluated patient , considered differential, d/w patient, d/w family, d/w service consultant ED course: Patient was seen and examined at bedside. Patient was awake and alert. A page was sent out for [facility] [place] [facility]. labs were drawn and patient was treated with ns bolus and fentanyl for his headache. seizure precautions were made. Case was discussed with DR. Schultz, [facility] [place] [facility] who agreed to transfer and inpatient care since the patient failed outpatient therapy and had worsening symptoms. He also recommended 50mg of topimax and valproic acid if necessary. Arrangements were made and patient was transferred in stable condition. Departure - Departure Disposition: 02 Transfer Acute Care Hosp Clinical Impression: Seizure Condition: Stable
[2017-06-19] MEDS ORDERED: POTASSIUM CHLORIDE 20 MEQ TABLET PO STA (00:46)
[2017-06-19] MEDS ORDERED: fentaNYL 100 MCG/2 ML VIAL ONE (01:30)
[2017-06-19 01:35] VITALS: BP 111/76
== END 2017-06-19 01:28 | disposition short-term general hospital (02) ==
LOC: EDUNIT# → EDBD → ED 23:43 → SUPCPDRO 23:43 → ED 06-19 01:28
DX: G40.909 Epilepsy, unspecified, not intractable, without status epilepticus (principal); F17.200 Nicotine dependence, unspecified, uncomplicated; Z86.73 Personal history of transient ischemic attack (TIA), and cerebral infarction without residual deficits; Z95.0 Presence of cardiac pacemaker; Z79.82 Long term (current) use of aspirin; Z98.890 Other specified postprocedural states
CPT/HCPCS: 36415; 70450; 80053; 83690; 85025; 96361; 96365; 96374; 96375; 96376; 99285; A9270

== ENCOUNTER 2017-06-19 01:30 | Outpatient (CLI) | payer MEDICAID | END 2017-06-19 01:31 | disposition short-term general hospital (02) | LOC: EMS 01:30 | PROVIDERS: ATTEND Surgery | DX: R56.9 Unspecified convulsions (principal) | CPT/HCPCS: A0425; A0426 ==

== ENCOUNTER 2017-07-04 13:59 | Outpatient (CLI) | payer MEDICAID | END 2017-07-04 14:00 | disposition critical access hospital (66) | LOC: EMS 13:59 | PROVIDERS: ATTEND Surgery | DX: R45.851 Suicidal ideations (principal) | CPT/HCPCS: A0425; A0429 ==

== ENCOUNTER 2017-07-04 14:24 | Emergency (ER) | payer MEDICAID ==
--- NOTE | 2017-07-04 14:38 | ED Physician Documentation ---
History of Present Illness - Stated complaint Stated Complaint: SI - History obtained from History obtained from: Patient, EMS - History of Present Illness Timing: Chronic Pain level max: 0 Pain level now: 0 Improved by: nothing Worsened by: nothing - Additonal information Additional information: Patient is a 56-year-old male with a history of depression who states that He has been feeling suicidal over the past several days, worse today. Saw [facility] this morning and created a safety plan to be seen next week. He felt unsafe at home, call 911 and was brought here for evaluation. Says the voices in his head are telling him to harm himself. Has a history of a brain aneurysm, multiple brain surgeries. States last hospitalized in March when he was living in [place], attempted suicide by pills at that time. Has not attempted suicide today. Review of Systems Ten Systems: 10 systems reviewed and negative Constitutional: denies: Fever, Chills Ears: denies: Ear pain Nose: denies: Rhinorrhea / runny nose, Congestion Cardiac: denies: Chest pain / pressure Respiratory: denies: Cough GI: denies: Nausea, Vomiting, Diarrhea Skin: denies: Rash Musculoskeletal: denies: Neck pain, Back pain Neurologic: denies: Headache PD PAST MEDICAL HISTORY - Past Medical History Cardiovascular: Other Neuro: CVA, TIA, Seizure disorder, Other Psych: Depression - Past Surgical History Past Surgical History: Yes Cardiovascular: Pacemaker Neuro: Craniotomy - Present Medications Home Medications: Ambulatory Orders Medication Instructions Recorded Confirmed Escitalopram [Lexapro] 20 mg PO DAILY 05/10/17 07/04/17 Gabapentin 300 mg PO TID 05/10/17 07/04/17 OLANZapine [Olanzapine] 20 mg PO QPM 05/10/17 07/04/17 Topiramate 100 mg PO BID 05/10/17 07/04/17 Aspirin [Aspirin EC] 1 tab PO DAILY 06/18/17 07/04/17 Atorvastatin Calcium 1 tab PO DAILY 06/18/17 07/04/17 Levetiracetam [Keppra] 1,000 mg PO BID 07/04/17 07/04/17 Valproic Acid 750 mg PO TID 07/04/17 07/04/17 - Allergies Allergies/Adverse Reactions: Allergies Allergy/AdvReac Type Severity Reaction Status Date / Time cephalexin [From Keflex] Allergy Unknown Verified 06/18/17 23:52 erythromycin base Allergy Unknown Verified 06/18/17 23:52 ketorolac [From Toradol] Allergy Itching Verified 06/18/17 23:52 TPA AdvReac Unknown Unknown Uncoded 06/18/17 23:52 - Social History Does the pt smoke?: Yes Smoking Status: Current every day smoker Does the pt drink ETOH?: No Does the pt have substance abuse?: No - Immunizations Immunizations are current?: No Immunizations: TDAP >10years/unknown - POLST Patient has POLST: No PD ED PE NORMAL - Vitals Vital signs reviewed: Yes - General General: Alert and oriented X 3, No acute distress, Well developed/nourished - HEENT HEENT: PERRL, Moist mucous membranes - Neck Neck: Supple, no meningeal sign - Cardiac Cardiac: RRR, Strong equal pulses - Respiratory Respiratory: No respiratory distress, Clear bilaterally - Abdomen Abdomen: Soft, Non tender, Non distended - Derm Derm: Warm and dry - Neuro Neuro: Alert and oriented X 3 - Psych Psych: Normal mood, Normal affect Results - Vitals Vitals: Vital Signs - 24 hr 07/04/17 07/04/17 07/04/17 14:41 15:18 17:57 Temperature 36.1 C L 36.5 C Heart Rate 88 68 75 Respiratory 16 18 18 Rate Blood Pressure 126/76 101/70 119/77 O2 Saturation 100 98 96 07/04/17 20:50 Temperature Heart Rate 66 Respiratory 18 Rate Blood Pressure 110/75 O2 Saturation 100 Oxygen O2 Source Room air - Labs Labs: Laboratory Tests 07/04/17 07/04/17 07/04/17 14:39 14:39 15:04 WBC 6.9 RBC 4.34 L Hgb 13.9 L Hct 41.2 L MCV 94.8 H MCH 32.0 H MCHC 33.7 RDW 13.4 Plt Count 199 MPV 8.5 Neut # 4.4 Lymph # 1.6 [place] # 0.9 Eos # 0.0 Baso # 0.1 Absolute Nucleated RBC 0.00 Nucleated RBC % 0.0 Sodium 140 Potassium 3.7 Chloride 107 Carbon Dioxide 22 Anion Gap 11.0 BUN 15 Creatinine 1.0 Estimated GFR (MDRD) 78 L Glucose 99 Calcium 9.1 Total Bilirubin 0.2 AST 17 ALT 14 Alkaline Phosphatase 62 Total Protein 6.7 Albumin 3.9 Globulin 2.8 Albumin/Globulin Ratio 1.4 Lipase 27 Salicylates < 6.0 Urine Opiates Screen NEGATIVE Ur Oxycodone Screen NEGATIVE Urine Methadone Screen NEGATIVE Ur Propoxyphene Screen NEGATIVE Acetaminophen < 10 L Ur Barbiturates Screen NEGATIVE Ur Tricyclics Screen NEGATIVE Ur Phencyclidine Scrn NEGATIVE Ur Amphetamine Screen NEGATIVE U Methamphetamines Scrn NEGATIVE U Benzodiazepines Scrn NEGATIVE Urine Cocaine Screen NEGATIVE U Cannabinoids Screen POSITIVE H Ethyl Alcohol < 5.0 PD MEDICAL DECISION MAKING - ED course Complexity details: reviewed results, re-evaluated patient, considered differential, d/w patient, d/w family, d/w application security consultant ED course: Patient is a 56-year-old male with a history of depression and psychosis, presents with worsening voices telling him to harm himself. He states that he is concerned that he may actually hurt himself and would like to go to a psychiatric facility. Social work was consulted and are trying to locate a bed , though none appear available tonight. He is cooperative in the emergency department and is taking his medications. Will be signed out to the [facility] emergency department physician for further care throughout the night and repeat evaluation with social work in the morning. This document was made in part using voice recognition software. While efforts are made to proofread this document, sound alike and grammatical errors may occur. Departure - Departure Clinical Impression: Major depression with psychotic features Condition: Stable
[2017-07-04 14:48] LABS: BASOPHILS # (AUTO) 0.1 10^3/uL (0.0-0.1); BASOPHILS % (AUTO) 0.9 %; HGB - HEMOGLOBIN 13.9 g/dL (14.0-18.0); LYMPHOCYTES # (AUTO) 1.6 10^3/uL (1.5-3.5); LYMPHOCYTES % (AUTO) 23.4 %; MEAN CORPUSCULAR HGB CONC 33.7 g/dL (32.0-36.0); MEAN CORPUSCULAR VOLUME 94.8 fL (80.0-94.0); MEAN PLATELET VOLUME 8.5 fL (7.4-11.4); MONOCYTES # (AUTO) 0.9 10^3/uL (0.0-1.0); MONOCYTES % (AUTO) 12.6 %; NEUTROPHILS # (AUTO) 4.4 10^3/uL (1.5-6.6); NEUTROPHILS % (AUTO) 63.1 %; PLT - PLATELET COUNT 199 10^3/uL (130-450); RED BLOOD COUNT 4.34 10^6/uL (4.70-6.10); RED CELL DISTRIBUTION WIDTH 13.4 % (12.0-15.0); WHITE BLOOD COUNT 6.9 x10^3/uL (4.8-10.8)
[2017-07-04 15:01] LABS: ALBUMIN 3.9 g/dL (3.2-5.5); ALBUMIN/GLOBULIN RATIO 1.4 (1.0-2.2); ALKALINE PHOSPHATASE 62 IU/L (42-121); ALT ALANINE AMINOTRANSFERASE 14 IU/L (10-60); AST ASPARTATE AMINOTRANSFERASE 17 IU/L (10-42); BILIRUBIN,TOTAL 0.2 mg/dL (0.2-1.0); BUN - BLOOD UREA NITROGEN 15 mg/dL (6-20); CALCIUM 9.1 mg/dL (8.5-10.3); CARBON DIOXIDE - CO2 22 mmol/L (21-32); CHLORIDE 107 mmol/L (101-111); GFR - MDRD 78 (>89); GLUCOSE 99 mg/dL (70-100); LIPASE 27 U/L (22-51); SALICYLATE < 6.0 mg/dL; SODIUM 140 mmol/L (135-145); TOTAL PROTEIN 6.7 g/dL (6.7-8.2)
[2017-07-04 15:07] LABS: ACETAMINOPHEN < 10 ug/mL (10-30)
[2017-07-04 15:08] LABS: MUDS CUTOFF CONCENTRATIONS CUTOFF CONC BELOW:
[2017-07-04 15:23] LABS: AMPHETAMINE SCREEN,URINE NEGATIVE (NEGATIVE); BENZODIAZEPINES SCREEN, URINE NEGATIVE (NEGATIVE); COCAINE SCREEN URINE NEGATIVE (NEGATIVE); METHADONE SCREEN, URINE NEGATIVE (NEGATIVE); METHAMPHETAMINES SCREEN, URINE NEGATIVE (NEGATIVE); OPIATE SCREEN, URINE NEGATIVE (NEGATIVE); OXYCODONE SCREEN, URINE NEGATIVE (NEGATIVE); PROPOXYPHENE SCREEN, URINE NEGATIVE (NEGATIVE); TRICYCLIC ANTIDEPRESSANT,URINE NEGATIVE (NEGATIVE)
[2017-07-04] MEDS ORDERED: OLANZapine ODT 5 MG TABLET TL ONE ×2 (18:46→21:54)
[2017-07-04] MEDS ORDERED: OLANZapine ODT 5 MG TABLET TL STA (19:40)
[2017-07-04] MEDS ORDERED: LORazepam 0.5 MG TABLET PO STA (20:21)
[2017-07-04] MEDS ORDERED: GABAPENTIN 100 MG CAPSULE PO STA (21:53)
[2017-07-04] MEDS ORDERED: DIVALPROEX DR 125 MG TABLET PO STA (21:54)
[2017-07-04] MEDS ORDERED: levETIRAcetam 250 MG TABLET PO STA (21:54)
[2017-07-04] MEDS ORDERED: LORazepam 2 MG/ML VIAL IM STA (22:15)
[2017-07-04] MEDS: TOPIRAMATE 100 MG TABLET PO STA (22:25)
[2017-07-05] MEDS ORDERED: NICOTINE 14 MG PATCH TOP STA ×2 (01:45→08:40)
[2017-07-05] MEDS ORDERED: LORazepam 0.5 MG TABLET PO STA ×2 (01:48→11:23)
[2017-07-05] MEDS ORDERED: OLANZapine ODT 5 MG TABLET TL STA (04:42)
[2017-07-05] MEDS ORDERED: DIVALPROEX ER 250 MG TABLET PO STA ×2 (07:09→13:59)
[2017-07-05] MEDS ORDERED: levETIRAcetam 250 MG TABLET PO STA ×3 (07:10→22:15)
[2017-07-05] MEDS ORDERED: TOPIRAMATE 100 MG TABLET PO STA (07:10)
[2017-07-05] MEDS ORDERED: GABAPENTIN 100 MG CAPSULE PO STA ×3 (07:11→22:15)
[2017-07-05] MEDS ORDERED: ESCITALOPRAM 10 MG TABLET PO STA (07:11)
[2017-07-05] MEDS ORDERED: ASPIRIN 325 MG TABLET PO STA (07:12)
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
[2017-07-05] MEDS ORDERED: risperiDONE 1 MG TABLET PO STA (17:52)
--- NOTE | 2017-07-05 18:09 | ED Physician Documentation ---
History of Present Illness - Stated complaint Stated Complaint: SI - Chief complaint Chief Complaint: MHE - History obtained from History obtained from: Patient PD PAST MEDICAL HISTORY - Past Medical History Past Medical History: Yes Cardiovascular: Other Neuro: CVA, TIA, Seizure disorder, Other Psych: Depression Other Past Medical History: Hx: SI/HI , Auditory Hallucinations - Past Surgical History Past Surgical History: Yes Cardiovascular: Pacemaker Neuro: Craniotomy - Present Medications Home Medications: Ambulatory Orders Medication Instructions Recorded Confirmed Escitalopram [Lexapro] 20 mg PO DAILY 05/10/17 07/04/17 Gabapentin 300 mg PO TID 05/10/17 07/04/17 OLANZapine [Olanzapine] 20 mg PO QPM 05/10/17 07/04/17 Topiramate 100 mg PO BID 05/10/17 07/04/17 Aspirin [Aspirin EC] 1 tab PO DAILY 06/18/17 07/04/17 Atorvastatin Calcium 1 tab PO DAILY 06/18/17 07/04/17 Levetiracetam [Keppra] 1,000 mg PO BID 07/04/17 07/04/17 Valproic Acid 750 mg PO TID 07/04/17 07/04/17 risperiDONE [Risperdal] 1 mg PO BID #20 tablet 07/05/17 - Allergies Allergies/Adverse Reactions: Allergies Allergy/AdvReac Type Severity Reaction Status Date / Time cephalexin [From Keflex] Allergy Unknown Verified 06/18/17 23:52 erythromycin base Allergy Unknown Verified 06/18/17 23:52 ketorolac [From Toradol] Allergy Itching Verified 06/18/17 23:52 TPA AdvReac Unknown Unknown Uncoded 06/18/17 23:52 - Social History Does the pt smoke?: Yes Smoking Status: Current every day smoker Does the pt drink ETOH?: No Does the pt have substance abuse?: No - Immunizations Immunizations are current?: No Immunizations: TDAP >10years/unknown - POLST Patient has POLST: No Results - Vitals Vitals: Vital Signs - 24 hr 07/06/17 07/06/17 08:14 11:48 Temperature 36.6 C 36.2 C L Heart Rate 90 100 Respiratory 18 18 Rate Blood Pressure 109/64 114/82 H O2 Saturation 99 97 Oxygen O2 Source Room air - Labs Labs: Laboratory Tests 07/04/17 07/04/17 07/04/17 14:39 14:39 15:04 WBC 6.9 RBC 4.34 L Hgb 13.9 L Hct 41.2 L MCV 94.8 H MCH 32.0 H MCHC 33.7 RDW 13.4 Plt Count 199 MPV 8.5 Neut # 4.4 Lymph # 1.6 [place] # 0.9 Eos # 0.0 Baso # 0.1 Absolute Nucleated RBC 0.00 Nucleated RBC % 0.0 Sodium 140 Potassium 3.7 Chloride 107 Carbon Dioxide 22 Anion Gap 11.0 BUN 15 Creatinine 1.0 Estimated GFR (MDRD) 78 L Glucose 99 Calcium 9.1 Total Bilirubin 0.2 AST 17 ALT 14 Alkaline Phosphatase 62 Total Protein 6.7 Albumin 3.9 Globulin 2.8 Albumin/Globulin Ratio 1.4 Lipase 27 Salicylates < 6.0 Urine Opiates Screen NEGATIVE Ur Oxycodone Screen NEGATIVE Urine Methadone Screen NEGATIVE Ur Propoxyphene Screen NEGATIVE Acetaminophen < 10 L Ur Barbiturates Screen NEGATIVE Ur Tricyclics Screen NEGATIVE Ur Phencyclidine Scrn NEGATIVE Ur Amphetamine Screen NEGATIVE U Methamphetamines Scrn NEGATIVE U Benzodiazepines Scrn NEGATIVE Urine Cocaine Screen NEGATIVE U Cannabinoids Screen POSITIVE H Ethyl Alcohol < 5.0 PD MEDICAL DECISION MAKING - ED course Complexity details: reviewed old records, reviewed results, re-evaluated patient , considered differential, d/w patient, d/w family ED course: 56-year-old male with a history of depression and seizure disorder has acute suicidal ideation and command hallucinations telling him to kill himself. He has had multiple doses of Zyprexa which have not reduce these hallucinations. We were unable to provide a bed for the patient in a psychiatric facility yesterday and today we have begun trying again. In the morning he had no medical social worker and we asked the tele-psych DrMaria Del Carmen to evaluate the patient for admission.Dr. Latonya Nunez was kind enough to provide recommendations for the patient's care. She did a thorough evaluation of his psychiatric needs and has recommended we stop his Zyprexa and replace it with Risperdal 1 mg twice daily. She recommends hospitalization for this schizophrenic male with command hallucinations. We were not able to get an inpatient psych bed but we were able to place him in a crisis bed with the trial of risperadon 1mg bid. I left the ED the night of 07-05-17 with expectation the patient was going to a crisis bed and this fell through and today 07-06-17 we were able to secure an in-patient bed at [facility]. Today he is some improved with the medication change. Departure - Departure Disposition: 65 Psych Hosp/Unit DC/[facility] Clinical Impression: Major depression with psychotic features Condition: Stable Instructions: ED Stress React, ED Depression Follow-Up: Bob iKng MD [Primary Care Provider] - Prescriptions: risperiDONE [Risperdal] 1 mg PO BID #20 tablet Discharge Date/Time: 07/06/17 12:20
[2017-07-05] MEDS ORDERED: OLANZapine ODT 5 MG TABLET TL ONE (22:15)
[2017-07-05] MEDS: TOPIRAMATE 100 MG TABLET PO STA (22:53)
[2017-07-05] MEDS ORDERED: DIVALPROEX ER 250 MG TABLET PO SCH (23:00)
[2017-07-05] MEDS ORDERED: TOPIRAMATE 25 MG TABLET PO SCH (23:00)
[2017-07-06] MEDS ORDERED: levETIRAcetam 250 MG TABLET PO STA (08:57)
[2017-07-06] MEDS ORDERED: GABAPENTIN 100 MG CAPSULE PO STA (08:58)
[2017-07-06] MEDS ORDERED: risperiDONE 1 MG TABLET PO STA (08:58)
[2017-07-06] MEDS ORDERED: TOPIRAMATE 25 MG TABLET PO STA (08:59)
[2017-07-06] MEDS ORDERED: DIVALPROEX ER 250 MG TABLET PO STA (08:59)
[2017-07-06] MEDS ORDERED: LORazepam 0.5 MG TABLET PO STA (09:03)
[2017-07-06] MEDS ORDERED: TOPIRAMATE 100 MG TABLET PO STA (09:05)
[2017-07-06 11:49] VITALS: BP 114/82
== END 2017-07-06 12:20 ==
LOC: EDUNIT# → ED 14:24
DX: F32.3 Major depressive disorder, single episode, severe with psychotic features (principal); R45.851 Suicidal ideations; G40.909 Epilepsy, unspecified, not intractable, without status epilepticus; Z86.73 Personal history of transient ischemic attack (TIA), and cerebral infarction without residual deficits; Z91.5 Personal history of self-harm; Z95.0 Presence of cardiac pacemaker; Z79.82 Long term (current) use of aspirin; F17.200 Nicotine dependence, unspecified, uncomplicated
CPT/HCPCS: 36415; 80053; 80306; 80307; 80320; 80329; 83690; 85025; 96372; 99284; 99285; A9270; G0427; J2060; Q3014

== ENCOUNTER 2017-08-10 16:50 | Emergency (ER) | payer MEDICAID ==
[2017-08-10] MEDS ORDERED: SODIUM CHLORIDE 0.9% 1,000 ML IV ONE (17:11)
--- NOTE | 2017-08-10 17:13 | ED Physician Documentation ---
History of Present Illness - Stated complaint Stated Complaint: DAZED,DISORIENTED - Chief complaint Chief Complaint: General - History obtained from History obtained from: Patient, Family (son) - History of Present Illness Timing: Other (56-year-old gentleman with history of intracranial aneurysms and seizure disorder as well as depression. He has had recent medication changes including Depakote and the addition of some psychiatric medications. Over the last week he has been very confused and acting funny. His son notes that they actually had been taking 2 prescriptions of Depakote, the first prescription was for 500 in the morning and the afternoon and 1 g at bedtime, but also a prescription for 750 mg 3 times daily.) Review of Systems Unable to obtain: Confused PD PAST MEDICAL HISTORY - Past Medical History Cardiovascular: Other Neuro: CVA, TIA, Seizure disorder, Other Psych: Depression - Past Surgical History Past Surgical History: Yes Cardiovascular: Pacemaker Neuro: Craniotomy - Present Medications Home Medications: Ambulatory Orders Medication Instructions Recorded Confirmed Escitalopram [Lexapro] 20 mg PO DAILY 05/10/17 07/04/17 Gabapentin 300 mg PO TID 05/10/17 07/04/17 OLANZapine [Olanzapine] 20 mg PO QPM 05/10/17 07/04/17 Topiramate 100 mg PO BID 05/10/17 07/04/17 Aspirin [Aspirin EC] 1 tab PO DAILY 06/18/17 07/04/17 Atorvastatin Calcium 1 tab PO DAILY 06/18/17 07/04/17 Levetiracetam [Keppra] 1,000 mg PO BID 07/04/17 07/04/17 Valproic Acid 750 mg PO TID 07/04/17 07/04/17 risperiDONE [Risperdal] 1 mg PO BID #20 tablet 07/05/17 - Allergies Allergies/Adverse Reactions: Allergies Allergy/AdvReac Type Severity Reaction Status Date / Time cephalexin [From Keflex] Allergy Unknown Verified 06/18/17 23:52 erythromycin base Allergy Unknown Verified 06/18/17 23:52 ketorolac [From Toradol] Allergy Itching Verified 06/18/17 23:52 TPA AdvReac Unknown Unknown Uncoded 06/18/17 23:52 - Social History Does the pt smoke?: Yes Smoking Status: Current every day smoker Does the pt drink ETOH?: No Does the pt have substance abuse?: No - Immunizations Immunizations are current?: No Immunizations: TDAP >10years/unknown - POLST Patient has POLST: No PD ED PE NORMAL - Vitals Vital signs reviewed: Yes - General General: Other (He is alert cooperative and pleasant, he can state the month but not the date or year.) - HEENT HEENT: PERRL, EOMI - Neck Neck: Supple, no meningeal sign, No bony TTP - Cardiac Cardiac: RRR, No murmur - Respiratory Respiratory: No respiratory distress, Clear bilaterally - Abdomen Abdomen: Non tender, Non distended - Derm Derm: Normal color, Warm and dry - Extremities Extremities: No edema, No calf tenderness / cord - Neuro Neuro: research & insights executive 2-12 intact Eye Opening: Spontaneous Motor: Obeys Commands Verbal: Confused GCS Score: 14 - Psych Psych: Normal mood, Normal affect Results - Vitals Vitals: Vital Signs - 24 hr 08/10/17 16:53 Temperature 36.8 C Respiratory 18 Rate Blood Pressure 119/73 O2 Saturation 100 Oxygen O2 Source Room air - Labs Labs: Laboratory Tests 08/10/17 08/10/17 17:17 17:17 WBC 4.3 L RBC 3.98 L Hgb 12.8 L Hct 38.9 L MCV 97.7 H MCH 32.0 H MCHC 32.8 RDW 13.8 Plt Count 147 MPV 8.4 Neut # Not Reportable Lymph # Not Reportable [place] # Not Reportable Eos # Not Reportable Baso # Not Reportable Absolute Nucleated RBC Not Reportable Total Counted 100 Band Neuts % (Manual) 3 Abnorm Lymph % (Manual) 0 Metamyelocytes % 1 H Nucleated RBC % Not Reportable Neutrophils # (Manual) 2.0 Lymphocytes # (Manual) 2.1 Monocytes # (Manual) 0.2 Eosinophils # (Manual) 0.0 Basophils # (Manual) 0.0 Differential Comment MANUAL DIFFERENTIAL Manual Slide Review Indicated Platelet Estimate NORMAL (130-450,000) Platelet Morphology NORMAL APPEARANCE RBC Morph Micro Appear NORMAL APPEARANCE Sodium 137 Potassium 3.9 Chloride 105 Carbon Dioxide 25 Anion Gap 7.0 BUN 20 Creatinine 1.1 Estimated GFR (MDRD) 69 L Glucose 131 H Calcium 8.8 Total Bilirubin 0.5 AST 27 ALT 31 Alkaline Phosphatase 36 L Total Protein 6.3 L Albumin 3.6 Globulin 2.7 Albumin/Globulin Ratio 1.3 Lipase 13 L Last Dose Date UNK Last Dose Time UNK Valproic Acid 129.5 PD MEDICAL DECISION MAKING - ED course ED course: 56-year-old gentleman with mild confusion related to Depakote toxicity. They were actually taking multiple of prescriptions for Depakote not knowing that divalproex and Depakote and valproic acid were all the same thing. Pharmacist came down went through the medications with them and I clarified their meds with them. Departure - Departure Disposition: 01 Home, Self Care Clinical Impression: Valproic acid toxicity Qualifiers: Encounter type: initial encounter Injury intent: accidental or unintentional Qualified Code(s): T42.6X1A - Poisoning by other antiepileptic and sedative- hypnotic drugs, accidental (unintentional), initial encounter Condition: Good Record reviewed to determine appropriate education?: Yes Comments: Note going forward the divalproex, Depakote, and valproic acid are all the same drug. Tonight he should skip his dosing of this. His medications should be as follows: aspirin, 81 mg in the morning atorvastatin 40 mg once a day. Lexapro/escitalopram 20 mg once a day. Gabapentin, 100 mg 3 times a day. Keppra/levetiracetam, 1000 mg tablets, 1.5 tablets every 12 hours Olanzapine/Zyprexa 20 mg at bedtime Topamax, 100 mg twice a day Valproic acid (note multiple names) 500 mg in the morning, 500 mg midday, 1 g at bedtime.
[2017-08-10 17:23] LABS: BASOPHILS % (AUTO) 0.6 %; EOSINOPHILS % (AUTO) 0.1 %; HGB - HEMOGLOBIN 12.8 g/dL (14.0-18.0); LYMPHOCYTES % (AUTO) 43.4 %; MEAN CORPUSCULAR HGB CONC 32.8 g/dL (32.0-36.0); MEAN CORPUSCULAR VOLUME 97.7 fL (80.0-94.0); MEAN PLATELET VOLUME 8.4 fL (7.4-11.4); MONOCYTES % (AUTO) 7.1 %; NEUTROPHILS % (AUTO) 48.8 %; PLT - PLATELET COUNT 147 10^3/uL (130-450); RED BLOOD COUNT 3.98 10^6/uL (4.70-6.10); RED CELL DISTRIBUTION WIDTH 13.8 % (12.0-15.0); WHITE BLOOD COUNT 4.3 x10^3/uL (4.8-10.8)
[2017-08-10 17:36] LABS: ALBUMIN 3.6 g/dL (3.2-5.5); ALBUMIN/GLOBULIN RATIO 1.3 (1.0-2.2); ALKALINE PHOSPHATASE 36 IU/L (42-121); ALT ALANINE AMINOTRANSFERASE 31 IU/L (10-60); AST ASPARTATE AMINOTRANSFERASE 27 IU/L (10-42); BILIRUBIN,TOTAL 0.5 mg/dL (0.2-1.0); BUN - BLOOD UREA NITROGEN 20 mg/dL (6-20); CALCIUM 8.8 mg/dL (8.5-10.3); CARBON DIOXIDE - CO2 25 mmol/L (21-32); CHLORIDE 105 mmol/L (101-111); CREATININE 1.1 mg/dL (0.6-1.2); GFR - MDRD 69 (>89); GLUCOSE 131 mg/dL (70-100); LIPASE 13 U/L (22-51); SODIUM 137 mmol/L (135-145); TOTAL PROTEIN 6.3 g/dL (6.7-8.2); VALPROIC ACID (DEPAKOTE) 129.5 ug/mL
[2017-08-10 17:45] LABS: ABNORMAL LYMPHS % (MANUAL) 0 %
[2017-08-10 17:52] LABS: BAND NEUTROPHILS % (MANUAL) 3 %; DIFFERENTIAL COMMENT MANUAL DIFFERENTIAL; LYMPHOCYTES # (MANUAL) 2.1 10^3/uL (1.5-3.5); LYMPHOCYTES % (MANUAL) 48 %; METAMYELOCYTES % (MANUAL) 1 %; MONOCYTES # (MANUAL) 0.2 10^3/uL (0.0-1.0); NEUTROPHILS % (MANUAL) 43 %; PLATELET ESTIMATE, MANUAL NORMAL (130-450,000) (NORMAL); PLATELET MORPHOLOGY NORMAL APPEARANCE (NORMAL); RBC MORPHOLOGY (MULTIPLE) NORMAL APPEARANCE (NORMAL)
[2017-08-10 19:26] VITALS: BP 118/70
== END 2017-08-10 19:30 | disposition home or self-care (01) ==
LOC: ED 16:50
DX: T42.6X1A Poisoning by other antiepileptic and sedative-hypnotic drugs, accidental (unintentional), initial encounter (principal); G40.909 Epilepsy, unspecified, not intractable, without status epilepticus; F17.200 Nicotine dependence, unspecified, uncomplicated; F32.9 Major depressive disorder, single episode, unspecified; Z86.73 Personal history of transient ischemic attack (TIA), and cerebral infarction without residual deficits; Z95.0 Presence of cardiac pacemaker; Z79.82 Long term (current) use of aspirin
CPT/HCPCS: 36415; 80053; 80164; 83690; 85025; 99283

== ENCOUNTER 2017-10-06 08:00 | Outpatient (CLI) | payer MEDICAID ==
[2017-10-06 13:01] LABS: BASOPHILS % (AUTO) 0.6 %; EOSINOPHILS % (AUTO) 0.2 %; HGB - HEMOGLOBIN 14.1 g/dL (14.0-18.0); LYMPHOCYTES # (AUTO) 1.7 10^3/uL (1.5-3.5); LYMPHOCYTES % (AUTO) 26.4 %; MEAN CORPUSCULAR HEMOGLOBIN 33.7 pg (27.0-31.0); MEAN CORPUSCULAR HGB CONC 34.4 g/dL (32.0-36.0); MEAN CORPUSCULAR VOLUME 98.2 fL (80.0-94.0); MEAN PLATELET VOLUME 8.9 fL (7.4-11.4); MONOCYTES # (AUTO) 0.6 10^3/uL (0.0-1.0); MONOCYTES % (AUTO) 9.4 %; NEUTROPHILS # (AUTO) 4.2 10^3/uL (1.5-6.6); NEUTROPHILS % (AUTO) 63.4 %; PLT - PLATELET COUNT 190 10^3/uL (130-450); RED BLOOD COUNT 4.19 10^6/uL (4.70-6.10); RED CELL DISTRIBUTION WIDTH 13.2 % (12.0-15.0); WHITE BLOOD COUNT 6.6 x10^3/uL (4.8-10.8)
[2017-10-06 13:17] LABS: ALBUMIN 3.9 g/dL (3.2-5.5); ALBUMIN/GLOBULIN RATIO 1.4 (1.0-2.2); ALKALINE PHOSPHATASE 49 IU/L (42-121); ALT ALANINE AMINOTRANSFERASE 16 IU/L (10-60); AST ASPARTATE AMINOTRANSFERASE 16 IU/L (10-42); BILIRUBIN,TOTAL 0.5 mg/dL (0.2-1.0); BUN - BLOOD UREA NITROGEN 13 mg/dL (6-20); CALCIUM 9.2 mg/dL (8.5-10.3); CARBON DIOXIDE - CO2 25 mmol/L (21-32); CHLORIDE 105 mmol/L (101-111); GFR - MDRD 78 (>89); GLUCOSE 88 mg/dL (70-100); SODIUM 138 mmol/L (135-145); TOTAL PROTEIN 6.7 g/dL (6.7-8.2); VALPROIC ACID (DEPAKOTE) 91.5 ug/mL
== END 2017-10-06 08:01 | disposition home or self-care (01) ==
LOC: LAB.N 08:00
PROVIDERS: ATTEND Family Medicine
DX: Z51.81 Encounter for therapeutic drug level monitoring (principal); R56.9 Unspecified convulsions
CPT/HCPCS: 36415; 80053; 80164; 85025

== ENCOUNTER 2017-11-23 18:09 | Outpatient (CLI) | payer MEDICAID ==
[2017-11-23 18:49] LABS: VALPROIC ACID (DEPAKOTE) 74.8 ug/mL
[2017-11-23 19:13] LABS: FOLATE 17.1 ng/mL (5.90 - >24.8)
== END 2017-11-23 18:10 | disposition home or self-care (01) ==
LOC: LAB 18:09
PROVIDERS: ATTEND Psychiatry & Neurology Neurology
DX: R68.3 Clubbing of fingers (principal); R79.89 Other specified abnormal findings of blood chemistry; G40.109 Localization-related (focal) (partial) symptomatic epilepsy and epileptic syndromes with simple partial seizures, not intractable, without status epilepticus
CPT/HCPCS: 36415; 80164; 80177; 80201; 81599; 82140; 82607; 82746

== ENCOUNTER 2018-04-05 15:55 | Outpatient (CLI) | payer MEDICAID | END 2018-04-05 15:56 | disposition home or self-care (01) | LOC: LAB.N 15:55 | PROVIDERS: ATTEND Physician Assistant | DX: R56.9 Unspecified convulsions (principal) | CPT/HCPCS: 36415; 80177; 81599 ==

== ENCOUNTER 2018-04-16 17:22 | Outpatient (CLI) | payer MEDICAID | END 2018-04-16 17:23 | disposition short-term general hospital (02) | LOC: EMS 17:22 | PROVIDERS: ATTEND Surgery | DX: R51 Headache (principal); R53.1 Weakness | CPT/HCPCS: A0425; A0429; A0999 ==